=== PATIENT | female | born 1990 | race Caucasian/White ===

== ENCOUNTER 2016-05-09 18:17 | Inpatient (IN) | payer OTHER ==
[~2016-05-09] VITALS: Ht 170.2 cm; Wt 86.6 kg
[2016-05-09] MEDS ORDERED: Lactated Ringer's 1,000 ML IV PRN (18:39)
[2016-05-09] MEDS ORDERED: Hemorrhage Kit, Post Partum XX ONE (18:40)
[2016-05-09] MEDS ORDERED: Sodium Chloride LOK Flush 10 mL Syringe IVFLUSH PRN (18:40)
[2016-05-09] MEDS ORDERED: Carboprost 250 mCg/mL Inj IM PRN (18:40)
[2016-05-09] MEDS ORDERED: Oxytocin 30 Units/500 mL LR 30 UNITS in IV Premix 1 EACH IV PRN ×2 (18:40→19:15)
[2016-05-09] MEDS ORDERED: Methylergonovine 0.2 mg/mL Inj IM PRN (18:40)
[2016-05-09] MEDS ORDERED: Oxytocin 10 Unit/mL Inj IM PRN (18:40)
[2016-05-09] MEDS ORDERED: fentaNYL-PF 50 mCg/mL 2 mL Inj IVPUSH PRN (19:15)
[2016-05-09] MEDS ORDERED: fentaNYL-PF 50 mCg/mL 2 mL Inj ONE (19:24)
[2016-05-09 19:34] LABS: Mean Corpuscular Hemoglobin 22.5 pg (27.0-35.0); Mean Corpuscular Volume 73.4 fL (81-100)
[2016-05-09] MEDS ORDERED: PNV1TABL81 PO (20:26)
--- NOTE | 2016-05-09 20:38 | HP ---
[address] [address] HISTORY AND PHYSICAL PATIENT: HERMINIA MUSA : 1990 MR#: [id number] ADMIT: 05/09/2016 JOB ID: [id number] CHIEF COMPLAINT: Contractions. HISTORY OF PRESENT ILLNESS: This is a 26-year-old obstetrical patient of [facility] at 40.3 weeks estimated gestational age, based on a last menstrual period of July 31, 2015, verified by a 14-week ultrasound. She presents complaining of increasing frequency and severity of contraction pain since last night. Contractions started at about 10 in the evening and went all night long, increasing in severity and frequency. She passed what she thought was her mucus plug at about 2:00 or 3:00 in the afternoon and has now presented to labor and delivery complaining of contractions every five minutes or so, for at least the last couple of hours and then she presented to Labor and Delivery at about 6:30 this evening with those symptoms. She reports no other vaginal discharge. She has no other acute complaints except for increasing abdominal pain and back pain. She has had a bit of a cough lately but it has been nonproductive and she has had no fevers and no other URI symptoms. OBSTETRICAL HISTORY: Patient is a 2, para 1, at 40.3 estimated gestational age with a course that has been remarkable for late presentation at about 19 weeks. Otherwise, no significant abnormalities or concerns. Her blood type is A-positive, rubella immune, nonreactive serology, negative hepatitis B and hep C, and HIV and antibody screen. Hematocrit initially was good at 38.7 at 13 weeks, and at 37 weeks, it dropped to 32.3. Initial labs included an A1c which was 5.6, and a TSH that was normal. Her Pap was unremarkable. The chlamydia and gonorrhea were negative and GBS was negative. She did not have her quad screen because she missed the opportunity and she declined the diabetic screen at 28 weeks. Her prior delivery was a vaginal in August 2014 of a 5-mrvvk-9-ounce baby boy at term without difficulty. The patient declined flu vaccination and reports her last tetanus shot was in 2013 and did not receive one during this . GYNECOLOGICAL HISTORY: Patient had menarche at 12 years old. Periods are regular. She has never had any abnormal Paps nor any history of STDs. PAST MEDICAL HISTORY: Significant for some mild anxiety but she does not take any medications. Otherwise, her medical history is entirely negative. SURGICAL HISTORY: Also negative. FAMILY HISTORY: Significant for diabetes in her mother and maternal grandmother and maternal aunt. Hypertension in her father. Paternal grandmother was a twin and maternal grandfather in his 50s from coronary artery disease. SOCIAL HISTORY: Patient lives in [place] with her of nine years and their 1-1/2-year-old son. The patient works at [employer]. ALLERGIES: The patient has an allergy to aluminum. Otherwise has no known drug allergies. REVIEW OF SYSTEMS: See HPI above. The patient denies any significant illness recently. No diarrhea, no abdominal pain nor back pain prior to these contractions. No swelling in her feet. No blurry vision. No unusual headaches. OBJECTIVE: Well-developed, well-nourished woman in no apparent distress except for during contractions. Her vital signs are normal. Lungs are clear to auscultation bilaterally with good air movement. Heart is regular rate and rhythm. No significant murmurs heard. Abdomen is gravid, otherwise benign, with normoactive bowel sounds. Extremities showed no significant edema and normal deep tendon reflexes. Pelvic exam by me when I arrived at seven this evening showed her still to be 3.5 cm, about 75% effaced, - 2 station, and vertex position, frida every 3-5 minutes with very firm contractions. heart tracing is reactive. ASSESSMENT: Intrauterine , at term, in labor. She is GBS negative and we will admit with routine labor management strategies. The patient is interested in getting an epidural but is not quite ready for one yet. She has not changed here cervix in 45 minutes since she got here, and then my exam, so will use some fentanyl to help with her pain and recheck her again in an hour or so. Will delay placing an epidural until she is preferably 5 cm or so. The patient understands this plan and is in agreement. I discussed routine expectant management issues and procedures. Also discussed potential complications and the usual obstetrical procedures to address them but also the possible need for surgical care if a becomes needed. I also discussed the possible need for assistance with vacuum extraction and the associated potential complications. All of her questions were answered and she expressed understanding of these issues and is willing to proceed.
[2016-05-09] MEDS ORDERED: Lactated Ringer's 500 ML IV ONE (20:48)
[2016-05-09] MEDS ORDERED: Lactated Ringer's 1,000 ML IV SCH (20:48)
[2016-05-09] MEDS ORDERED: fentaNYL 2 mCg/mL-Bupiv 0.125% 100 ML EPIDURAL SCH (20:50)
[2016-05-09] MEDS ORDERED: Ondansetron 2 mg/mL 2 mL Inj IVPUSH PRN (20:50)
[2016-05-09] MEDS ORDERED: EPHEDrine Sulfate 50 mg/mL Inj IVPUSH PRN (20:50)
[2016-05-09] MEDS ORDERED: Atropine 1 mg/10 mL (Code) Syringe IVPUSH PRN (20:50)
--- NOTE | 2016-05-09 20:50 | PCM.HPANE ---
Patient Data Surgeon Admitting Provider:Bry Agarwal MD Attending Provider:Bry Agarwal MD Primary Care Physician:Bry Agarwal MD Other Provider:Annika Palumboingham Anesthesia Reason for Visit Active Labor ACTIVE LABOR Ht/WT & BMI Body Mass Index Allergies Coded Allergies: No Known Allergies (Verified Allergy, Unknown, 05/09/16) Diabetes History Hx Diabetes?: No Type of Diabetes: Type II Medications Hypertension Medication: No Home Meds Incl Beta Flaca: No Reported Medications Pnv No.122/Iron/Folic Acid ( Multi Tablet)27 Mg Iron-800 Mcg Tablet1 Each PO 05/09/16 History History of ENT Problems?: No Hx of Heart Problems?: No Hx of Respiratory Problem?: No Respiratory History: Positive for:: Asthma (As an ) Hx Neurologic Problems?: Yes Hx of GI Problems?: No Hx of Problems?: Yes Genitourinary History: Positive for:: Urinary Tract Infection Female Hx: Denies:: Currently Endometriosis Pelvic Inflammatory Problems with Breasts? Hx Any Other Health Problems?: No History Blood Transfusions: Denies:: Blood Transfuse Reaction Blood Transfusions Hx Alcohol Use: YesHx Substance Use: No Smoking Status: Unknown if Ever Smoker Stop/Bang Risk Assessment Category Category 1A: Patient has history of documented sleep apnea, and HAS NOT received any narcotic, sedative or anesthesia administration during this stay. Category 1B: Patient has history of documented sleep apnea, and HAS received any narcotic , sedative or anesthesia administration during this stay Category 2: Patient has SUSPECTED Obstructive Sleep Apnea, and HAS received any narcotic , sedative or anesthesia administration during this stay. Category 3: Patient has SUSPECTED Obstructive Sleep Apnea and HAS NOT received narcotic, sedative or anesthesia administration during this stay. Category 4: Outpatient in Procedural Areas with known sleep apnea or who screen positive for High Risk via the STOP/BANG questionnaire. Exam Exam General Appearance: Alert, Oriented X3, Cooperative HEENT/AIRWAY: MP 1 Lungs: Normal Air Movement Heart: Exam Unremarkable Meds/Labs/Diagnostics Labs Test 05/09/16 19:00 05/09/16 19:47 White Blood Count 12.8th/mm3 (3.8-10.1) Red Blood Count 4.67mil/mm3 (3.90-5.20) Hemoglobin 10.5g/dL (12.0-15.6) Hematocrit 34.3% (35.0-46.0) Mean Corpuscular Volume 73.4fL (81-100) Mean Corpuscular Hemoglobin 22.5pg (27.0-35.0) Mean Corpuscular Hemoglobin Concent 30.6% (32.0-37.0) Red Cell Distribution Width 18.0% (12.3-15.4) Platelet Count 355bil/L (150-400) Urine Opiates Screen Negative Urine Methadone Screen Negative Urine Barbiturates Screen Negative Urine Amphetamines Screen Negative Urine Benzodiazepines Screen Negative Urine Cocaine Metabolite Screen Negative Urine Cannabinoids Screen Negative Plan Impression Patient chart reviewed, patient interviewed and anesthestic plan with risks, benefits, and alternatives discussed, and informed consent obtained. ASA Physical Status: ASA2 Mod Systemic Disease Anesthetic Plan: Epidural Bene/Risks/Altern/Consents: Yes HP Complete Prior to Induction: Yes Beto Sawant MD May 09, 2016 20:49
[2016-05-09] MEDS ORDERED: Bupivacaine-MPF 0.25% 30 mL Inj ONE (21:10)
[2016-05-09] MEDS ORDERED: Mineral Oil-Heavy 30 mL UDC ONE (23:37)
--- NOTE | 2016-05-10 01:09 | OP ---
[address] [address] OPERATIVE REPORT PATIENT: HERMINIA MUSA : 1990 MR#: [id number] ADMIT: 05/09/2016 JOB ID: [id number] DATE OF SURGERY: 05/10/2016 SURGEON: Bry Agarwal PREOPERATIVE DIAGNOSIS(ES): Term POSTOPERATIVE DIAGNOSIS(ES): Spontaneous Vaginal Delivery DELIVERY NOTE: Patient had a spontaneous vaginal delivery of a baby boy as described below. Please see please see my admission history and physical for patient's presenting circumstances. Her labor course progressed nicely. She was found to be 5 cm at around nine o'clock and had an epidural placed with excellent results. Artificial rupture of membranes was performed when she was 7 at about 10 o'clock, resulting in clear fluids, and she was found to be completely dilated at 11:38, and began pushing with the baby in occiput anterior position at about a -1 station with excellent epidural anesthesia. The patient just pushed for 20 minutes or so and then delivered the baby's head. There was no nuchal cord noted and then the rest of the baby was delivered over an intact perineum at 12:03. There was a Bandolier cord noted around the baby's left shoulder and this was reduced normally. Approximately 60 seconds was waited and the cord was clamped and cut. The placenta delivered spontaneously and intact at 12:11. Visualization of the perineum, vagina and cervix revealed no significant lacerations at all. Estimated blood loss 200 cc. Complications none. The baby was a baby boy with Apgars of 9 and 9, and weight is still pending. Orders will be written for routine care. The baby's doctor is going to be Dr. Dawna Wisdom, and she will be contacted to come in and care for the baby. AYAAN
[2016-05-10] MEDS ORDERED: LANOlin HPA 7 Gm Ointment TOPICAL PRN (08:20)
[2016-05-10] MEDS ORDERED: Methylergonovine 0.2 mg/mL Inj IM PRN (08:20)
[2016-05-10] MEDS ORDERED: Witch Hazel-Glycerin Pads TOPICAL PRN (08:20)
[2016-05-10] MEDS ORDERED: Lactated Ringer's 1,000 ML IV SCH (08:20)
[2016-05-10] MEDS ORDERED: Carboprost 250 mCg/mL Inj IM PRN (08:20)
[2016-05-10] MEDS ORDERED: Hemorrhage Kit, Post Partum XX ONE (08:20)
[2016-05-10] MEDS ORDERED: Benzocaine (Dermoplast) 20% 60 Gm Spray TOPICAL PRN (08:20)
[2016-05-10] MEDS ORDERED: Oxytocin 10 Unit/mL Inj IM PRN (08:20)
[2016-05-10] MEDS ORDERED: oxyCODONE-Acetamin 5-325 mg Tablet PO PRN (08:20)
[2016-05-10] MEDS ORDERED: Ascorbic Acid 500 mg Tablet PO SCH (17:30)
--- NOTE | 2016-05-10 19:43 | PCM.DIOB ---
Obstetrical Disch Instruction Date of Service: May 10, 2016 Dates of Hospitalization Date of Hospital Admission May 09, 2016 at 18:45 Providers Admitting Physician: Bry Agarwal MD Primary Care Physician: Bry Agarwal MD Attending Physician: Bry Agarwal MD Discharge Diagnosis Discharge Diagnosis Term resolved with Spontaneous Vaginal Delivery Problems: Diet Discharge Diet: No restrictions Activity Discharge Activity-General: Pelvic Rest for 6 weeks, Try not to overdue, Balance rest and activity Dressing and Incisional Care Hygiene: May shower Follow Up Plan Follow Up Plan f/u in 6 weeks and as needed Follow-up Provider (F9): Bry Agarwal MD Follow-up appointment: Weeks (six), As needed Call your provider for: Fever or Chills, Shortness of breath, Heavy vaginal bleeding, Heavy bleeding, Epigastric pain, Excessive constipation, Vaginal discomfort, Red painful breasts Bry Agarwal MD May 10, 2016 19:43
[2016-05-10] MEDS ORDERED: IBUP800T28 PO (19:48)
[2016-05-10 20:05] VITALS: BP 118/78; PULSE 82; RESP 18
--- NOTE | 2016-05-11 01:34 | DIS ---
[address] [address] DISCHARGE SUMMARY PATIENT: HERMINIA MUSA : 1990 MR#: [id number] ADMIT: 05/09/2016 JOB ID: [id number] DIS: 05/10/2016 DISCHARGE DIAGNOSIS: Term , now resolved with spontaneous vaginal delivery. HISTORY AND PHYSICAL: Please see my admission H and P for details. CONSULTATIONS: None. PROCEDURE: The patient had a spontaneous vaginal delivery early in the morning on May 10. See my delivery note for full details. HOSPITAL COURSE: The patient presented in active labor in the late afternoon of May 09 and proceeded nicely in labor without augmentation. She requested an epidural for pain management. This was placed with excellent results. Her labor continued to progress nicely and eventually had a baby boy via spontaneous vaginal delivery without significant problems. See my delivery note for details. Her course has also likewise been unremarkable, is feeling fine at this time, and would like to be discharged. Patient reports no significant perineal discomfort. She reports decreasing lochia. She reports no significant breast complaints. OBJECTIVE: Well-developed, well-nourished woman in no apparent distress. Her vital signs are normal. Lungs: Clear to auscultation bilaterally. Good air movement. Heart: Regular rate and rhythm. No significant murmur is heard. Abdomen: Soft, nontender, with normoactive bowel sounds. Uterus is firm and palpable and below the level of the umbilicus. Extremities show no significant edema and normal deep tendon reflexes. ASSESSMENT AND PLAN: Status post spontaneous vaginal delivery approximately 18 hours ago, and is doing very well. The patient would like to be discharged home, so will plan on discharging her home with discharge medications of ibuprofen 800 mg to use t.i.d. p.r.n., given 40 tablets. Told to follow up with me in six weeks, otherwise as needed.
== END 2016-05-10 21:11 | disposition home or self-care (01) | DRG 775 ==
LOC: FBCO 18:17 → FBC 18:45
PROVIDERS: ADMIT Family Medicine; ATTEND Family Medicine
PROC: 10E0XZZ Delivery of Products of Conception, External Approach (ICD-10-PCS; principal; 2016-05-10)
PROC: 10907ZC Drainage of Amniotic Fluid, Therapeutic from Products of Conception, Via Natural or Artificial Opening (ICD-10-PCS; 2016-05-10)
DX: O80 Encounter for full-term uncomplicated delivery (principal); Z37.0 Single live birth; Z3A.40 40 weeks gestation of pregnancy